=== PATIENT | male | born 2000 | race Asian ===

== ENCOUNTER 2022-08-17 11:47 | Emergency (ER) | payer OTHER, SELFPAY ==
[2022-08-17 12:08] VITALS: BP 123/62; PULSE 79; RESP 14; TEMP 37.3; O2SAT 99; BMI 21.5
--- NOTE | 2022-08-17 13:01 | ED_ITS ---
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 Patient woke up this morning and felt something in his left ear, almost like a buzzing, he then put some mineral oil in the ear to kill the insect, once the mineral oil was in the ear canal movement and any buzzing stopped. He leaned over and drained the mineral and whatever was in his ear out, still feels that there was something in his left ear, denies any decreased hearing, tenderness, pain or drainage from that ear. Patient had been doing well prior to the incident. Related Data Home Medications Medication Instructions Recorded Confirmed No Known Home Medications 08/17/22 08/17/22 Allergies Allergy/AdvReac Type Severity Reaction Status Date / Time No Known Drug Allergies Allergy Verified 08/17/22 12:07 Review of Systems Status of ROS: Reports: 10 or more systems reviewed and unremarkable except as noted in History and below Exam Narrative: Exam Narrative: General: No obvious distress, sitting comfortably, nontoxic in appearance HEENT: Right ear, tympanic membranes within normal limits Left ear: Tympanic membrane within normal limits, some mild erythema in the canal, no foreign body noted. Neck: Supple full range of motion Heart: Normal sinus rhythm S1-S2 Muscle skeletal: +5 strength upper lower extremities Neuro: Gait within normal limits, GCS 15, alert awake and oriented x3 Psych: Mood and affect normal Const: Vital Signs, click to edit/add: Vital Signs - 24 hr 08/17/22 12:08 Temperature 99.2 F Pulse Rate [Pulse Oximeter] 79 Respiratory Rate 14 Blood Pressure [Le ft Upper Arm] 123/62 Pulse Oximetry 99 Oxygen Delivery Me thod Room Air Course Course Hospital Course: 12:45 PM: AIDET performed. Based on history and physical exam, no foreign body noted in his left ear, reassurance is given, he should follow-up with a primary care provider over the next 7-10 days if any changes with symptoms. Reasons return were given. Vital Signs Vital signs: Initial Vital Signs Temperature 99.2 F 08/17/22 12:08 Temperature Source Temporal Artery Scan 08/17/22 12:08 Pulse Rate 79 08/17/22 12:08 Pulse Rhythm Regular 08/17/22 12:08 Respiratory Rate 14 08/17/22 12:08 Blood Pressure 123/62 08/17/22 12:08 Blood Pressure Mean 82 08/17/22 12:08 Blood Pressure Position Sitting 08/17/22 12:08 Pulse Oximetry 99 08/17/22 12:08 Oxygen Delivery Method Room Air 08/17/22 12:08 Vital Signs Temperature 99.2 F 08/17/22 12:08 Pulse Rate 79 08/17/22 12:08 Respiratory Rate 14 08/17/22 12:08 Blood Pressure 123/62 08/17/22 12:08 Pulse Oximetry 99 08/17/22 12:08 Oxygen Delivery Method Room Air 08/17/22 12:08 Temperature 99.2 F 08/17/22 12:08 Pulse Rate 79 08/17/22 12:08 Respiratory Rate 14 08/17/22 12:08 Blood Pressure 123/62 08/17/22 12:08 Pulse Oximetry 99 08/17/22 12:08 Oxygen Delivery Method Room Air 08/17/22 12:08 Discharge Plan Discharge Clinical Impression: Acute foreign body of left ear Patient Disposition: Home, Self-Care Condition: Improved Instructions: Ear Foreign Body (ED) Additional Instructions: To follow up with a primary care provider in the next 7-10 days as needed if any worsening symptoms. Activity Level: No Restrictions Prescriptions: No Action No Known Home Medications Stand Alone Forms: MyHealth Info Instructions
== END 2022-08-17 13:39 | disposition home or self-care (01) ==
PROVIDERS: Emergency Provider Student in an Organized Health Care Education/Training Program
DX: T16.2XXA Foreign body in left ear, initial encounter (principal)
CPT/HCPCS: 99282; 99284